=== PATIENT | female | born 1965 | race Caucasian/White ===

== ENCOUNTER 2017-09-06 08:06 | Day surgery (SDC) | payer MEDICAID ==
[2017-09-01 10:04] VITALS: BMI 27.4
[2017-09-06] MEDS ORDERED: Sodium Chloride 0.9% 1,000 ML IV SCH (08:45)
[2017-09-06] MEDS ORDERED: Propofol 10 mg/ml Inj (20 ML) ONE ×2 (08:46→08:47)
[2017-09-06] MEDS ORDERED: Albuterol HFA 90 mcg/actuation (8 g) ONE (09:39)
[2017-09-06 11:06] VITALS: O2SAT 100
[2017-09-06] MEDS ORDERED: Sodium Chloride 0.9% 250 ML IV SCH (11:40)
[2017-09-06 12:38] VITALS: TEMP 97.5
[2017-09-06 14:02] VITALS: BP 127/67; PULSE 76; RESP 18
== END 2017-09-06 13:35 | disposition home or self-care (01) ==
LOC: ENDO 08:06
PROVIDERS: ATTEND Internal Medicine Gastroenterology
DX: Z12.11 Encounter for screening for malignant neoplasm of colon (principal); K64.0 First degree hemorrhoids; K29.50 Unspecified chronic gastritis without bleeding; K21.9 Gastro-esophageal reflux disease without esophagitis; B96.81 Helicobacter pylori [H. pylori] as the cause of diseases classified elsewhere; Z98.0 Intestinal bypass and anastomosis status
CPT/HCPCS: 43239; 45378; 88305; 88342; J2001; J2704; J7030; J7040